=== PATIENT | female | born 1975 | race Caucasian/White ===

== ENCOUNTER 2025-04-09 10:52 | Outpatient (AMB) | payer SELFPAY ==
--- NOTE | 2025-04-09 10:54 | A.OFFVIS_ITS ---
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 Allergies codeine Allergy (Mild, Verified 04/09/25 10:55) respiratory sedation sulfa drugs Allergy (Severe, Uncoded 04/09/25 10:45) numbeness dust mites Allergy (Mild, Uncoded 04/09/25 10:23) Sneezing HPI HPI Lyme Arthritis/ Mylagia: Details: New patient visit. SHANNON 1:320 ordered by [facility] due to chronic pain. She saw [facility] for 1 visit where labs were ordered. No follow-up has been scheduled. She has history of positive SHANNON. It has had speckled pattern in the past. This new test reveals nucleolar pattern per patient. She had drug induced malar rash after ER visit. She has malar erythema at times, self-limited. +intermittent oral ulcers. Years ago she had genital ulcers. Hx shingles (R buttocks) and HSV (buttocks). Dyspnea post covid. She has clear thick mucus that causing choking episodes at times. No photosensitivity. +dry mouth with minimal dry eyes. She has flares of feeling sick. She has vasovagal episodes with intense knee pain. She has knee pain without vasovagal episodes. She has neck pain with headaches. Pain in shoulders, elbow, wrists, knees, toes. She can have pain in all joints at one time. She has associated warmth in area of joint pain. She has not had joint swelling. She had miscarriage 14 weeks and 8 week . 5 childbirth. No hx of DVT or PE. 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 She experienced a tick bite [place] the [place] with associated ankle swelling. She was treated for Lyme infection initially. Then she saw a specialist who ordered further testing that was out of pocket that confirm anaplasmosis and ehrlichiosis. She had azithromycin and hydroxychloroquine, which benefit in reducing her joint pain. She also reports that she had more clarity in her thought with less memory problems. She has had elevated IgM levels. PMx reviewed in EMR. She also has history of Idiopathic angioedema. She has a abdominal/pelvic mesh with planned surgery to remove it by a surgeon in [place]. History of asthma. She has GERD and uses Tums as needed. No family history of SLE or RA. Her maternal grandmother had arthritis. Medication list reviewed with patient. 01/21/2025 ESR 35, negative RF, CBC normal. SHANNON 1:320. [facility] Medical History (Updated 04/09/25 @ 13:51 by Jovani Miranda MD) Carpal tunnel syndrome, unspecified upper limb Hyperchylomicronemia Allergic bronchitis without complication Dermatitis Vascular headache, not intractable Constipation, unspecified Rectocele Other specified anxiety disorders Gastro-esophageal reflux disease with esophagitis, without bleeding Other immunodeficiencies Late effect of Lyme disease Irritable bowel syndrome, unspecified Family history of breast cancer Dysphagia, unspecified Dermographism Obstructive sleep apnea (adult) (pediatric) COVID-19 Post-COVID syndrome Prediabetes Thyroid nodule Surgical History (Updated 04/09/25 @ 10:41 by Abby Loaiza CMA) H/O endoscopy History of salpingectomy H/O abdominoplasty Hx of colonoscopy S/P anterior colporrhaphy Family History (Updated 04/09/25 @ 10:22 by Abby Loaiza CMA) Mother Breast cancer Maternal Grandmother Breast cancer Social History (Updated 04/09/25 @ 10:42 by Abby Loaiza CMA) Alcohol intake: current Patient Tobacco Use Status: Former Tobacco user Physical Exam Vital Signs: Last Vital Signs Pulse 87 04/09/25 10:56 Pulse Ox 98 04/09/25 10:56 Oxygen Delivery Method Room Air 04/09/25 10:56 BMI result Body Mass Index 30.5 Const Other: General: Comfortable CVS: RRR Respiratory: clear to auscultation bilaterally. Good respiratory effort Skin: Slight malar erythema MSK: Tender bilateral MCPs, PIPs and interphalangeal joints. No synovitis. Normal range of motion of upper extremities and lower extremities. No allodynia or tender points present. Assessment & Plan Assessment & Plan (1) Positive SHANNON (antinuclear antibody): Comment: With history of malar erythema, oral ulcers, dry mouth, chronic polyarthralgias and clinical exam significant for tender small joints in her hands. She does no t have synovitis to suggests active inflammatory arthritis. I will workup for connective tissue disease including SLE, Sjogren syndrome and perform workup for early inflammatory arthritis. Code(s): R76.8 - Other specified abnormal immunological findings in serum Category: Medical Plan: Labs ordered X-ray bilateral hands requested from the hand Center, which patient has had done within the last 6 months Return to clinic in 1-2 months to review results (2) Polyarthralgia: Code(s): M25.50 - Pain in unspecified joint Category: Medical Plan: See above Orders: Orders Complete Blood Count Man Dif Today R76.8 - Other specified abnormal immunological findings in serum C Reactive Protein Today R76.8 - Other specified abnormal immunological findings in serum Erythrocyte Sedimentation Rate Today R76.8 - Other specified abnormal immunological findings in serum Complement C3 Today R76.8 - Other specified abnormal immunological findings in serum Protein Creatinine Ratio, Ur Today R76.8 - Other specified abnormal immunological findings in serum Sm Sm/BIOMETRIC TECHNICIAN Antibodies Today R76.8 - Other specified abnormal immunological findings in serum UA w Microscopic Today R76.8 - Other specified abnormal immunological findings in serum Rheumatoid Factor Today M25.50 - Pain in unspecified joint Cyclic Citrullinated Peptide Today M25.50 - Pain in unspecified joint Alanine Aminotransferase Today R76.8 - Other specified abnormal immunological findings in serum Aspartate Amino Transferase Today R76.8 - Other specified abnormal immunologi jaguar findings in serum Creatinine Today R76.8 - Other specified abnormal immunological findings in serum Complement C4 Today R76.8 - Other specified abnormal immunological findings in serum Anti DNA DS Antibody Today R76.8 - Other specified abnormal immunological findings in serum Sjogren's Antibodies Today R76.8 - Other specified abnormal immunological findings in serum Coding Level of Care Code New Pt Level 4 (62977) Diagnoses Positive SHANNON (antinuclear antibody) R76.8 Polyarthralgia M25.50
[2025-04-09 10:56] VITALS: PULSE 87; O2SAT 98; BMI 30.5
--- OUTSIDE RECORDS SUMMARY | 2025-04-09 12:08 | XMS_ITS | Clinical Summary ---
Author Organization [facility] Address [address] [place] [phone] Phone Care Team Providers Care Bush Hog Operator Name Role Phone Stephanie Shah MD Primary Care Prov ider Allergies Active Allergy Reactions Criticality Noted Date Comments Codeine Other (See Comments),Unknown,Vomiting High 08/05/2017 Sulfa (Sulfonamide Antibiotics) Other (See Comments) Medium 08/05/2017 Medications albuterol (ACCUNEB) 0.63 mg/3 mL nebulizer solution Inhale by inhalation route. Active Social History Tobacco Use Types Packs/Day Years Used Date Smoking Tobacco: Former Cigarettes 0.5 5 Q uit: 05/10/2010 Smokeless Tobacco: Never Comments:Do not smoke any lo nger Alcohol Use Standard Drinks/Week Comments Never 0 (1 standard drink = 0.6 oz pur e alcohol) Interpersonal Safety Answer Date Record ed Is there anyone in your life that is hurting or threatening you in anyway? Not on file 10/16/2024 Physical Indicators of Abuse No evidence of phys ical abuse 10/16/2024 Comments Unknown Sex and Gender Information Value Date Recorded Sex Assigned at Not on file Legal Sex Female 10:23 AM EDT Gender Identity Not on file Sexual Orientation Not on file Last Filed Vital Signs Vital Sign Reading Time Taken Comments Blood Pressure - - Pulse - - Temperature - - Respiratory Rate - - Oxygen Saturation - - Inhaled Oxygen Concentration - - Weight 76.2 kg (168 lb) 10/16/2024 4:53 PM EST Height 163.8 cm (5' 4.5 ) 10/16/2024 4:53 PM EST Body Mass Index 28.39 10/16/2024 4:53 PM EST Plan of Treatment Health Maintenance Due Date Last Done Comments HIV screening 1988 Hepatitis C screening 1993 Tetanus adult (Td q 10,TDAP once) 1995 Cervical cancer screening 1996 Breast cancer screening 2015 Lipid disorder screening 2015 Colon cancer screening, Colonoscopy 2020 Diabetes screening 2020 Covid-19 vaccine series ( - 2023- season) 2024 Influenza vaccine 07/22/2025 RSV Immunization (1 - 1-dose 75+ series) 2050 Meningococcal Vaccine Aged Out No rosangela lonnie eligible based on patient's age to complete this topic Pneumococcal Vaccine (2 - 49 years) Aged Out No longer eligible based on patient's age to complete this topic Insurance [employer] [facility] [employer] Care Teams Bush Hog Operator Relationship Specialty Start Date End Date Stephanie Shah MD PCP - General Internal Medicine 07/02/24
--- OUTSIDE RECORDS SUMMARY | 2025-04-09 12:08 | XMS_ITS ---
Author Organization [employer] [facility] Address [address] [place] [address] Care Team Providers Care Comber Fixer Name Role Phone BETO MONTILLA Unavailable [phone] VANCE MCCALL Unavailable [phone] REASON FOR VISIT seca- Medications Medication SIG (Take, Route, Fr equency, Duration) Notes Start Date End Date Status Zepbound 2.5 MG/0.5ML 2.5 mg weekly Subc utaneous Weekly for 30 days Active Encounters Encounter Location Date Provider Diagnosis [place] [id number] [phone] 01/21/2025 VANCE MCCALL Other obesity due to excess calories E66.09 ; Body mass index [BMI] 31.0-31.9, adult Z68.31 ; Dietary counseling and surveillance Z71.3 ; Prediabetes R73.03 and QUYEN on CPAP G47.33 Assessments Encounter Date Diagnosis (ICD Code) Assessment Notes Treatment Notes Treatment Clinical Notes Section Notes 01/21/2025 Other obesity due to excess calories (ICD-10 - E66.09) #Weight Management 01/21/2025 History of prediabetes metabolic syndrome and QUYEN on CPAP We discussed the new surmount QUYEN trial and indication for tirzepatide Meets criteria for tirzepatide Will start Zepbound Patient has been found to be obese with a BMI of (31). Patient has obese class 1 per BMI standards Total time spent today was 30 minutes of which greater than 50% was spent on coordinating and counseling We are a board certified obesity and weight management practice Of note, some information is being carried forward from prior records for informational purposes only and is being cited so that efficiency, safety and quality of the patient's care is not compromised This note was prepared using voice recognition software and direct typing Please excuse inadvertent tennis net maker or typing errors, or uncorrected word substitutions Although every attempt has been made by the provider to proofread this document, occasional misspellings and typographical errors may still be present Due to the previous pandemic, and the use of personal protective equipment (PPE) This may decrease voice recognition accuracy Inadvertent tennis net maker errors may occur 01/21/2025 Body mass index [BMI] 31.0-31.9, adult (ICD-10 - Z68.31) #Weight Management 01/21/2025 History of prediabetes metabolic syndrome and QUYEN on CPAP We discussed the new surmount QUYEN trial and indication for tirzepatide Meets criteria for tirzepatide Will start Zepbound Patient has been found to be obese with a BMI of (31). Patient has obese class 1 per BMI standards Total time spent today was 30 minutes of which greater than 50% was spent on coordinating and counseling We are a board certified obesity and weight management practice Of note, some information is being carried forward from prior records for informational purposes only and is being cited so that efficiency, safety and quality of the patient's care is not compromised This note was prepared using voice recognition software and direct typing Please excuse inadvertent tennis net maker or typing errors, or uncorrected word substitutions Although every attempt has been made by the provider to proofread this document, occasional misspellings and typographical errors may still be present Due to the previous pandemic, and the use of personal protective equipment (PPE) This may decrease voice recognition accuracy Inadvertent tennis net maker errors may occur 01/21/2025 Dietary counseling and surveillance (ICD-10 - Z71.3) #Weight Management 01/21/2025 History of prediabetes metabolic syndrome and QUYEN on CPAP We discussed the new surmount QUYEN trial and indication for tirzepatide Meets criteria for tirzepatide Will start Zepbound Patient has been found to be obese with a BMI of (31). Patient has obese class 1 per BMI standards Total time spent today was 30 minutes of which greater than 50% was spent on coordinating and counseling We are a board certified obesity and weight management practice Of note, some information is being carried forward from prior records for informational purposes only and is being cited so that efficiency, safety and quality of the patient's care is not compromised This note was prepared using voice recognition software and direct typing Please excuse inadvertent tennis net maker or typing errors, or uncorrected word substitutions Although every attempt has been made by the provider to proofread this document, occasional misspellings and typographical errors may still be present Due to the previous pandemic, and the use of personal protective equipment (PPE) This may decrease voice recognition accuracy Inadvertent tennis net maker errors may occur 01/21/2025 Prediabetes (ICD-10 - R73.03) #Weight Management 01/21/2025 History of prediabetes metabolic syndrome and QUYEN on CPAP We discussed the new surmount QUYEN trial and indication for tirzepatide Meets criteria for tirzepatide Will start Zepbound Patient has been found to be obese with a BMI of (31). Patient has obese class 1 per BMI standards Total time spent today was 30 minutes of which greater than 50% was spent on coordinating and counseling We are a board certified obesity and weight management practice Of note, some information is being carried forward from prior records for informational purposes only and is being cited so that efficiency, safety and quality of the patient's care is not compromised This note was prepared using voice recognition software and direct typing Please excuse inadvertent tennis net maker or typing errors, or uncorrected word substitutions Although every attempt has been made by the provider to proofread this document, occasional misspellings and typographical errors may still be present Due to the previous pandemic, and the use of personal protective equipment (PPE) This may decrease voice recognition accuracy Inadvertent tennis net maker errors may occur 01/21/2025 QUYEN on CPAP (ICD-10 - G47.33) #Weight Management 01/21/2025 History of prediabetes metabolic syndrome and QUYEN on CPAP We discussed the new surmount QUYEN trial and indication for tirzepatide Meets criteria for tirzepatide Will start Zepbound Patient has been found to be obese with a BMI of (31). Patient has obese class 1 per BMI standards Total time spent today was 30 minutes of which greater than 50% was spent on coordinating and counseling We are a board certified obesity and weight management practice Of note, some information is being carried forward from prior records for informational purposes only and is being cited so that efficiency, safety and quality of the patient's care is not compromised This note was prepared using voice recognition software and direct typing Please excuse inadvertent tennis net maker or typing errors, or uncorrected word substitutions Although every attempt has been made by the provider to proofread this document, occasional misspellings and typographical errors may still be present Due to the previous pandemic, and the use of personal protective equipment (PPE) This may decrease voice recognition accuracy Inadvertent tennis net maker errors may occur Plan Of Treatment Medication Medication Name Sig Start Date Stop Date Notes Zepbound 2.5 MG/0.5ML 2.5 mg weekly Subc utaneous Weekly for 30 days Next Appt Details Provider Name:VANCE MCCALL, 04/13/2025 10:45:00 AM, [address], [place], [address], Progress Notes * Consuelo TIMMONSDOB:1974 (49 yo F)Acc No.[id number]:01/21/2025 Patient:?Consuelo TIMMONS Provider:?VANCE MCCALL NP :1975???Age:49 Y???Sex:Female D ate:01/21/2025 Address:[address] [place], [place] [id number] Subjective: * Chief Complaints: * ???1. Seca-. * HPI: ???Constitutional:? Patient is here today for a weight management f/u visit Patient seen and examined. Full past medical history, social history, family history, allergies and current medications were reviewed and updated. Body composition analysis reviewed today #Weight Management 01/21/2025 Patient no longer on Wegovy due to it costing almost thousand is a month for 2024 She does have obstructive sleep apnea We discussed the new surmount QUYEN trial and indication for tirzepatide Patient no longer on Mounjaro due to not having diagnosis of type 2 diabetes Insurance will no longer cover and PA did Her A1c today is back to being prediabetic at 5.8 Previously had done well on dual incretin and was euglycemic at 5.4 Her weight is obviously up including fat mass 01/21/2025, Weight , BMI 12/07/2024, Weight 182lbs, BMI 31 (+14lbs) 09/22/2024, Weight 168lbs , BMI 28 (-3bs) 04/02/2024, Weight 171, BMI 29.4 (-17ilbs) 11/28/2022: Weight 188lbs, BMI (-16lbs) 07/18/2023: Weight 204 lbs, BMI 35: PCP Pablo Patient works as job analysis manager, [employer] Highest weight: 212 lbs Lowest weight: 130'slbs Goal weight: 150-160 lbs QUYEN screening, +compliant with CPAP Comprehensive labs April 2024 Hemoglobin A1c euglycemic at 5.3 Renal function electrolytes and LFTs are stable CBC is stable Total cholesterol 264, LDL 159, HDL 89, triglycerides 81 Vitamin D 28 TSH 1.03 UA unremarkable Has not had an echocardiogram recently. Non-smoker. ETOH use: Social. * ROS:?All Other Systems:?Review of Systems (ROS)?All others negative except those mentioned in HPI.? * Medical History:? Objective: * Vitals:? * Examination: ???General Examination: ?GENERAL APPEARANCE:?in no acute distress, well developed, well nourished.?HEAD:?normocephalic, atraumatic.?EYES:?pupils equal, round, reactive to light and accommodation.?EARS:?normal.?ORAL CAVITY:?mucosa moist.?THROAT:?clear.?NECK/THYROID:?neck supple, full range of motion, no cervical lymphadenopathy.?SKIN:?no suspicious lesions, warm and dry.?HEART:?no murmurs, regular rate and rhythm, S1, S2 normal.?LUNGS:?clear to auscultation bilaterally.?ABDOMEN:?normal, bowel sounds present, soft, nontender, nondistended.?EXTREMITIES:?no clubbing, cyanosis, or edema.?NEUROLOGIC:?nonfocal, motor strength normal upper and lower extremities, sensory exam intact.? Assessment: * Assessment: 1.?Other obesity due to exce ss calories - E66.09???2.?Body mass index [BMI] 31.0-31.9, adult - Z68.31???3.?Dietary counseling and surveillance - Z71.3???4.?Prediabetes - R73.03???5.?QUYEN on CPAP - G47.33??? #Weight Management 01/21/2025 History of prediabetes metabolic syndrome and QUYEN on CPAP We discussed the new surmount QUYEN trial and indication for tirzepatide Meets criteria for tirzepatide Will start Zepbound Patient has been found to be obese with a BMI of (31). Patient has obese class 1 per BMI standards Total time spent today was 30 minutes of which greater than 50% was spent on coordinating and counseling We are a board certified obesity and weight management practice Of note, some information is being carried forward from prior records for informational purposes only and is being cited so that efficiency, safety and quality of the patient's care is not compromised This note was prepared using voice recognition software and direct typing Please excuse inadvertent tennis net maker or typing errors, or uncorrected word substitutions Although every attempt has been made by the provider to proofread this document, occasional misspellings and typographical errors may still be present Due to the previous pandemic, and the use of personal protective equipment (PPE) This may decrease voice recognition accuracy Inadvertent tennis net maker errors may occur. Plan: * Treatment: * Billing Information: * Visit Code:? * Procedure Codes:? * Electronic signature of PAUL MCCALL on 04/09/2025 at 12:08 PM EDT Sign off status: Pending * Provider:?VANCE MCCALL NP Date:?2024 Generated for Christiano ortiz/Tristan/Elderitting on:?04/09/2025 12:08 PM EDT History and Physical Notes * HPI (History of Present Illness) Category Sub-Category Detail Notes Category Not es Constitutional Patient is here today for a weight management f/u visit Patient seen and examined. Full past medical history, social history, family history, allergies and current medications were reviewed and updated. Body composition analysis reviewed today #Weight Management 01/21/2025 Patient no longer on Wegovy due to it costing almost thousand is a month for 2024 She does have obstructive sleep apnea We discussed the new surmount QUYEN trial and indication for tirzepatide Patient no longer on Mounjaro due to not having diagnosis of type 2 diabetes Insurance will no longer cover and PA did Her A1c today is back to being prediabetic at 5.8 Previously had done well on dual incretin and was euglycemic at 5.4 Her weight is obviously up including fat mass 01/21/2025, Weight , BMI 12/07/2024, Weight 182lbs, BMI 31 (+14lbs) 09/22/2024, Weight 168lbs , BMI 28 (-3bs) 04/02/2024, Weight 171, BMI 29.4 (-17ilbs) 11/28/2022: Weight 188lbs, BMI (-16lbs) 07/18/2023: Weight 204 lbs, BMI 35: PCP Pablo Patient works as job analysis manager, [employer] Highest weight: 212 lbs Lowest weight: 130'slbs Goal weight: 150-160 lbs QUYEN screening, +compliant with CPAP Comprehensive labs April 2024 Hemoglobin A1c euglycemic at 5.3 Renal function electrolytes and LFTs are stable CBC is stable Total cholesterol 264, LDL 159, HDL 89, triglycerides 81 Vitamin D 28 TSH 1.03 UA unremarkable Has not had an echocardiogram recently. Non-smoker. ETOH use: Social Examination Category Sub-Category Detail Notes Category Not es General Examination GENERAL APPEARANCE: in no ac kake distress, well developed, well nourished HEAD: normocephalic, atrau matic EYES: pupils equal, round, reactive to light and accommodation EARS: normal THROAT: clear NECK/THYROID: neck supple, full ra nge of motion, no cervical lymphadenopathy HEART: no murmurs, regular rate and rhythm, S1, S2 normal LUNGS: clear to auscultatio n bilaterally ABDOMEN: normal, bowel sounds present, soft, nontender, nondistended NEUROLOGIC: nonfocal, motor stre ngth normal upper and lower extremities, sensory exam intact SKIN: no suspicious lesion s, warm and dry EXTREMITIES: no clubbing, cyanosi s, or edema ORAL CAVITY: mucosa moist
--- OUTSIDE RECORDS SUMMARY | 2025-04-09 12:08 | XMS_ITS | Clinical Summary ---
Author Organization [facility] [address] [facility] Address [address] [place] [address] Phone Care Team Providers Care Injection Wax Molder Name Role Phone Stephanie Shah MD Primary Care Prov ider Allergies Active Allergy Reactions Criticality Noted Date Comments Codeine 09/28/2024 Respiratory sedation Sulfa (Sulfonamide Antibiotics) 09/28/2024 Numbness and tingling on face and lips Medications Ketty 7.5 mg/0.5 mL injection INJECT 1 PEN SUBCUTANEOUSLY EVERY WEEK 4 Active LORazepam (ATIVAN) 0.5 mg tablet Take 1 tablet (0.5 mg total) by mouth every 6 (six) hours if needed. Max Daily Amount: 2 mg 0 Active esomeprazole (NexIUM) [address] capsule Take 1 capsule (40 mg total) by mouth daily. 7 Active calcium carbonate (Tums) 500 mg (200 mg elemental calcium) chewable tablet Chew 1 tablet (500 mg total). 1 Active albuterol HFA (PROAIR HFA ; PROVENTIL HFA ; VENTOLIN HFA) 90 mcg/actuation inhaler Inhale 2 puffs by mouth. 2 Active albuterol 0.63 mg/3 mL nebulizer solution Inhale by inhalation route. Active ibuprofen (ADVIL,MOTRIN) 40 mg/ml suspension drops Take by mouth. Activ e atorvastatin (LIPITOR) 10 mg tablet Take 1 tablet (10 mg total) by mouth at bedtime. 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 Following with [facility] pulmonology. On Symbicort and has follow-up. Consult on 01/26/2022 COVID-19 virus infection 02/16/2021 Overview (12/07/2024): 02/03/2021,11/2023 Obstructive sleep apnea 06/16/2020 Overview (12/07/2024): [facility] Home Sleep Apnea Test: Date 06/10/2020; BMI 33; AHI 5; average oxygen saturation 96% (lowest 87% without saturations <88% for 5% or more of study) - Obstructive Sleep Apnea - mild; without sleep related hypoventilation by 2019 home sleep apnea test. Abnormal laboratory test result 02/08/2018 Overview (12/07/2024): ELEVATED IgM, with normal SPEP, no immune or oncologic manifestations currently Repeat in 1 year 02/08/18 Snoring 11/22/2017 Overview (12/07/2024): 11/16/2017 Home Sleep Study did not reveal sleep apnea. Gastroesophageal reflux disease with esophagitis 02/14/2017 Overview (12/07/2024): EGD 06/06/2015 at [facility]. IBS (irritable bowel syndrome) 02/14/2017 Overview (12/07/2024): Onset approx age 30, alt C/D. 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 Primary immunodeficiency disorder ([facility] V24) 02/25/2016 Rectocele 02/25/2016 Situational anxiety 02/25/2016 Reactive airway disease without complication 06/2015 Allergic rhinitis 04/18/2014 Hypercholesterolemia 12/01/2011 Carpal tunnel syndrome 11/28/2009 Encounters Date Type Department Care Team Description 03/08/2025 Telephone Gastroenterology - [address] [place] [address] Kaya German MD 03/07/2025 Telephone Adult Medicine - [place] [address] [place] [phone] Stephanie Shah MD Verbal Referral 02/27/2025 Telephone Adult Medicine - [place] [address] [place] [phone] Stephanie Shah MD Referral from Last 3 Months Immunizations Name Administration Dates Next Due Influenza Quadravalent, MDCK , 0.5ml, preservative free (Flucelvax) 6mo and older 07/24/2024,11/09/2022,10/17/2019 Influenza Quadravalent, MDCK , 0.5ml, with preservative (Flucelvax) 6mo and older 10/27/2018 Td Tetanus diptheria (Tdvax) 7yo and older 06/11 Tdap Tetanus diptheria acell ular pertussis (Boostrix; Adacel) 7yo and older 06/11/2008 Surgical History Surgery Date Site/Laterality Comments BLADDER SURGERY 04/2013 PROCEDURE: HISTORICAL BLADDER SURGERY; COMMENT: vaginal colporrhaphy COLONOSCOPY 06/06/2015 PROCEDURE: HISTORICAL COLONOSCOPY; COMMENT: Olive@[facility]; normal. UPPER GASTROINTESTINAL ENDOSCOPY 06/06/2015 PROCEDURE: OR UPPER GI ENDOSCOPY PERFORMED; COMMENT: Olive@[facility]; grade 3 reflux esophagitis. CARPAL TUNNEL RELEASE PROCEDURE: OR NEUROPLASTY &/TRANSPOS MEDIAN NRV CARPAL TUNNE; COMMENT: right hand BELT ABDOMINOPLASTY PROCEDURE: HISTORICAL TUMMY TUCK OTHER SURGICAL HISTORY Bilateral PROCEDURE: OR LAPAROSCOPY SALPINGOSTOMY; COMMENT: salpingectomy Medical History Medical History Date Comments IBS (irritable bowel syndrome) 02/14/2017 D X:IBS (irritable bowel syndrome); COMMENT: Onset approx age 30, alt C/D. Constipation 02/25/2016 DX:Constipation Eczema 02/25/2016 DX:Eczema Episodic cluster headache, n ot intractable 02/25/2016 DX:Episodic cluster headache , not intractable Gastroesophageal reflux dise ase with esophagitis 02/14/2017 DX:Gastroesophageal reflux d isease with esophagitis; COMMENT: EGD 06/06/2015 at [facility]. Post-Lyme disease syndrome 02/25/[address] DX:[address]-Lyme disease syndrome Primary immunodeficiency dis order (CMS/HCC V24) 02/25/2016 DX:Primary immunodeficiency disorder (HCC) Rectocele 02/25/2016 DX:Rectocele Situational anxiety 02/25/2016 DX:Situation al anxiety Snoring 11/22/2017 DX:Snoring; COMM ENT: 11/16/2017 Home Sleep Study did not reveal sleep apnea. FH: breast cancer in first d egree relative 04/26/2019 DX:FH: breast cancer in firs t degree relative; COMMENT: Mother (50's), maternal grandmother (30's, no treatment and ) and great grandmother; sister Abnormal laboratory test result 02/08/2018 DX:Abnormal laboratory test result; COMMENT: ELEVATED IgM, with normal SPEP, no immune or oncologic manifestations currently Repeat in 1 year 02/08/18 Allergic rhinitis 04/18/2014 DX:Allergic rh initis Asthma 04/28/2015 DX:Asthma Carpal tunnel syndrome 11/28/2009 DX:Carpal tunnel syndrome House dust mite allergy 04/11/2018 DX:House dust mite allergy Hypercholesterolemia 12/01/2011 DX:Hypercho lesterolemia Dermatographism DX:Dermatographi sm Family History Medical History Relation Name Comments Asthma Aunt Other: Joint Problems Brother Bowel Problems Breast cancer Maternal Grandmother Breast cancer Mother Barnet's Dise ase Breast cancer Mother's side Great Grandmo ther Asthma Other Children Other: GI cancer Paternal Grandmother Breast cancer Sister Bowel Problems , Asthma, Joint Problems Relation Name Status Comments Aunt Brother Father Maternal Grandmother Mother Mother's side Other Paternal Grandmother Sister Social History Tobacco Use Types Packs/Day Years Used Date Smoking Tobacco: Former Cigarettes 0.8 6.1 1 12/05/2001 - 11/21/2008 Smokeless Tobacco: Never Alcohol Use Standard Drinks/Week Comments Yes 0 (1 standard drink = 0.6 oz pur e alcohol) Comments Unknown Sex and Gender Information Value Date Recorded Sex Assigned at Female 10/01/2024 8:03 AM EST Legal Sex Female 5:59 PM EST Gender Identity Female 10/01/2024 8:03 AM EST Sexual Orientation Straight 10/01/2024 8: 03 AM EST Obstetrics History Last Filed Vital Signs Vital Sign Reading Time Taken Comments Blood Pressure 122/84 08/22/2024 3:10 PM EDT Pulse 84 08/22/2024 3:10 PM EDT Temperature - - Respiratory Rate - - Oxygen Saturation - - Inhaled Oxygen Concentration - - Weight 77.6 kg (171 lb) 09/28/2024 9:46 AM EST Height 165.1 cm (5' 5 ) 09/28/2024 9:46 AM EST Body Mass Index 28.46 09/28/2024 9:46 AM EST Plan of Treatment Upcoming Encounters Date Type Department Care Team (Late st Contact Info) Description 04/17/2025 4:00 PM EDT Office Visit Adult Medicine - [place] [address] [place] [phone] Stephanie Shah MD [address] [place] [address] Health Maintenance Due Date Last Done Comments Hepatitis A Vaccines (1 of 2 - Risk 2-dose series) 1994 Hepatitis B Vaccines (1 of 3 - 19+ 3-dose series) 1994 Pneumococcal Vaccine: Pediatrics (0 to 5 Years) and At-Risk Patients (6 to 64 Years) (1 of 2 - PCV) 1994 Cervical Cancer Screening: Pap Smear 1996 DTaP,Tdap,and Td Vaccines (3 - Td or Tdap) 06/11/2018 06/11/2008, 06/11/2008 Breast Cancer Screening 03/16/2021 03/16/2019, 02/08 COVID-19 Vaccine (2 - Minh risk series) 04/24/2022 03/27/2022 Colorectal Cancer Screening: Colonoscopy 10/23/2022 Depression Screening 10/23/2022 HIV Screening 10/23/2022 Social Influencers of Health Screening 10/23/2022 Cholesterol Screening (Lipid Panel) 06/13/2028 06/13/2023 MMR Vaccines Aged Out 08/23/2016 No longer eligi ble based on patient's age to complete this topic Hepatitis C Screening Completed 08/05/2017 Influenza Vaccine Completed 07/24/2024, , 11/09/2022, Additional history exists HIB Vaccines Aged Out No longer eligi ble based on patient's age to complete this topic HPV Vaccines Aged Out No longer eligi ble based on patient's age to complete this topic IPV Vaccines Aged Out No longer eligi ble based on patient's age to complete this topic Meningococcal ACWY Vaccine Aged Out N o longer eligible based on patient's age to complete this topic Meningococcal B Vaccine Aged Out No l onger eligible based on patient's age to complete this topic RSV Immunization Patients Under 20 months Aged Out No longer eligible based on patient's age to complete this topic Varicella Vaccines Aged Out No longer eligible based on patient's age to complete this topic Procedures Procedure Name Priority Date/Time Associated Diagnosis Comments RHEUMATOID FACTOR Routine 01/21/2025 4:0 4 PM EST Nontoxic multinodular goiter Cervical osteoarthritis SHANNON IFA WITH TITER AND PATTERN Routine 01/21/2025 4:04 PM EST Nontoxic multinodular goiter Cervical osteoarthritis C REACTIVE PROTEIN, HIGH SENSITIVITY Routine 01/21/2025 4:04 PM EST Nontoxic multinodular goiter Cervical osteoarthritis SEDIMENTATION RATE Routine 01/21/2025 4: 04 PM EST Nontoxic multinodular goiter Cervical osteoarthritis COMPLETE BLOOD COUNT Routine 01/21/2025 4:04 PM EST Nontoxic multinodular goiter Cervical osteoarthritis THYROID STIMULATING HORMONE WITH REFLEX TO FREE T4 AND FREE T3 Routine 01/21/2025 4:04 PM EST Nontoxic multinodular goiter LIPID PANEL Routine 06/13/2023 ROSLYN SCREENING DIGITAL Routine 03/16/2019 5:10 PM EDT Encounter for screening mammogram for malignant neoplasm of breast from Last 3 Months or Most Recently Relevant to Health Maintenance Results * Thyroid stimulating hormone with reflex to free t4 and free t3 (01/21/2025 4:04 PM EST) TSH 1.94 0.40 - 4.00 mcIU/mL LAB CHEMISTRY METHOD 01/21/2025 5:17 PM EST [facility] Blood Venous blood specimen / Unknown Venipuncture / Unknown 01/21/2025 4:04 PM EST 01/21/2025 4:13 PM EST Jaclyn Thomas MD LAB BLOOD ORDERABLES Final Result Performing Organization Address City/[facility]/ZIP Co de Phone Number [facility] [address] [place] [address], [place] [phone] * (ABNORMAL) SHANNON IFA with titer and pattern (01/21/2025 4:04 PM EST) SHANNON Positive( A) Negative 01/23/2025 12:24 PM [facility] SHANNON Pattern Nucleolar (A) (none) 01/23/2025 12:24 PM EST [facility] Comment:May be associated wi th scleroderma. Titer 1:320(A) <1:160 01/23/2025 12:24 PM EST [facility] Comment: Approximately 3% of healthy persons have SHANNON titer of 1:320 or higher Further testing for other autoantibodies should be prompted by specific clinical findings/impressions. Blood Venous blood specimen / Unknown Venipuncture / Unknown 01/21/2025 4:04 PM EST 01/21/2025 4:13 PM EST us Jessica Bryant DO LAB BLOOD ORDERABLES Final Resu lt [facility] [address] [place] [address], [place] [phone] * (ABNORMAL) Sedimentation rate (01/21/2025 4:04 PM EST) Sed Rate 35(H) 0 - 20 mm/hr LAB HEMETOLOGY METHOD 01/21/2025 5:16 PM [facility] Blood Venous blood specimen / Unknown Venipuncture / Unknown 01/21/2025 4:04 PM EST 01/21/2025 4:13 PM EST us Jessica Bryant DO LAB BLOOD ORDERABLES Final Resu lt [facility] [address] [place] [address], [place] [phone] * Complete blood count (01/21/2025 4:04 PM EST) WBC 7.0 4.8 - 10.8 K/mcL LAB HEMETOLOGY METHOD 01/21/2025 4:29 PM [facility] RBC 4.30 3.80 - 4.80 M/mcL LAB HEMETOLOGY METHOD 01/21/2025 4:29 PM [facility] Hemoglobin 12.4 11.5 - 16.0 g/dL LAB HEMETOLOGY METHOD 01/21/2025 4:29 PM [facility] Hematocrit 37.3 35.0 - 47.0 % LAB HEMETOLOGY METHOD 01/21/2025 4:29 PM [facility] MCV 86.5 79.0 - 98.0 FL LAB HEMETOLOGY METHOD 01/21/2025 4:29 PM [facility] MCH 28.8 27.0 - 32.0 pcg LAB HEMETOLOGY METHOD 01/21/2025 4:29 PM [facility] MCHC 33.2 32.0 - 37.0 g/dL LAB HEMETOLOGY METHOD 01/21/2025 4:29 PM [facility] RDW 13.1 11.0 - 15.0 % LAB HEMETOLOGY METHOD 01/21/2025 4:29 PM [facility] Platelets 268 130 - 400 K/mcL LAB HEMETOLOGY METHOD 01/21/2025 4:29 PM EST [facility] MPV 9.1 7.0 - 11.0 FL LAB HEMETOLOGY METHOD 01/21/2025 4:29 PM EST [facility] NRBC 0.0 <1.0 % LAB HEMETOLOGY METHOD 01/21/2025 4:29 PM EST [facility] NRBC Absolute 0.00 <0.10 K/mcL LAB HEMETOLOGY METHOD 01/21/2025 4:29 PM EST [facility] Blood Venous blood specimen / Unknown Venipuncture / Unknown 01/21/2025 4:04 PM EST 01/21/2025 4:13 PM EST us Jessica Bryant DO LAB BLOOD ORDERABLES Final Resu lt Performing Organization Address City/[facility]/ZIP Co de Phone Number [facility] [address] [place] [address], [place] [phone] * Rheumatoid factor (01/21/2025 4:04 PM EST) Rheumatoid Factor <10.0 <15.0 I Unit/mL LAB CHEMISTRY METHOD 01/21/2025 5:02 PM EST [facility] Blood Venous blood specimen / Unknown Venipuncture / Unknown 01/21/2025 4:04 PM EST 01/21/2025 4:13 PM EST us Jessica Bryant DO LAB BLOOD ORDERABLES Final Resu lt Performing Organization Address City/[facility]/ZIP Co de Phone Number [facility] [address] [place] [address], [place] [phone] * C reactive protein, high sensitivity (01/21/2025 4:04 PM EST) CRP, High Sensitivity 17.30 mg/L LAB CHEMISTRY METHOD 01/21/2025 5:06 PM EST [facility] [place] ([facility]) [facility] Comment: Cardio CRP Relative Risk Categories ?? Low ? <1.0 mg/L ?? Average ?? 1.0 - 3.0 mg/L ?? High ?>3.0 mg/L Levels >10.0 mg/L should be ignored and repeated when the patient is stable and infection or inflammation is ruled out. HRT (estrogens) consistently increase cardio CRP levels. Risk estimates for women on HRT may need to be calibrated downward. Blood Venous blood specimen / Unknown Venipuncture / Unknown 01/21/2025 4:04 PM EST 01/21/2025 4:13 PM EST Jessica Bryant DO LAB BLOOD ORDERABLES Final Resu lt [facility] ([facility]) [facility] [address] [place] [address], * (ABNORMAL) Lipid panel (06/13/2023) LDL/HDL Ratio 3 0 - 4 Triglycerides 128 0 - 150 mg/dL Cholesterol 204(A) 0 - 200 mg/dL HDL 81 >=40 mg/dL LDL Cholesterol 98 0 - 100 mg/dL Blood Venous blood specimen / Unknown Historical Provider LAB BLOOD ORDERABLES Nely l Result * ROSLYN SCREENING DIGITAL (03/16/2019 5:10 PM EDT) Anatomical Region Laterality Modality Mammography 03/16/2019 1:19 PM EDT Narrative 03/16/2019 5:[address] [facility] Diagnostic Imaging Department [address], [place] [id number] Patient: ??CATRACHO TIMMONS ?/Age/Sex: 1975 - 43 - F Unit#: ??[id number] ? Location/Status: ??SPDIMAM/REG CLI ? Mnemonic/Ordering Site: ??DIGSC/SPMAM Ordering Physician: ??STEPHANIE BUTCHER [place] Screening Digital - 03/16/19 - 1414 INDICATION: Screening.Mother had breast carcinoma in her 30s. Maternal grandmother and maternal great grandmother had breast carcinoma. COMPARISON: Prior mammograms dating back to 2009 TECHNIQUE: Routine views of both breasts were obtained using full-field direct digital mammography. Bilateral tomosynthesis was performed in MLO projection. Computer Aided Detection was utilized. BREAST PARENCHYMAL COMPOSITION: The breast parenchyma is composed of scattered fibroglandular densities. (Category b density ) . FINDINGS: ??No suspicious mammographic abnormality in the right breast. Focal asymmetry in the anterior to mid third of the left breast. Recommend further evaluation with spot compression views and ultrasound as necessary. IMPRESSION: Focal asymmetry in the anterior to mid third of the left breast. Recommend further evaluation as described above OVERALL FINAL ASSESSMENT: BI-RADS 0: ??Incomplete. ??Need Additional Imaging Evaluation. PQRI CPT II 3340F A negative mammogram in the presence of clinically suspicious palpable abnormality does not preclude the possibility of malignancy or alter the indications for biopsy. Note: Patient information entered into a reminder system with a target due date for the next mammogram: ??CPT II 7025F [id number] Dictating Physician: ??LILIANE WINCHESTER MD Electronically Signed by: ??LILIANE WINCHESTER MD Dic Date/Time: ??03/16/191706 Sign date/Time: ??03/16/19 171 Procedure Note Liliane Winchester MD - 11/09/[address] [facility] Diagnostic Imaging Department [address] [place] [address] Patient: IAINCATRACHO /Age/Sex: 1975 - 43 - F Unit#: [id number] Location/Status: [facility] CLI Mnemonic/Ordering Site: [facility] Ordering Physician: STEPHANIE BUTCHER [place] Screening Digital - 03/16/19 - 1414 INDICATION: Screening.Mother had breast carcinoma in her 30s. Maternal grandmother and maternal great grandmother had breast carcinoma. COMPARISON: Prior mammograms dating back to 2009 TECHNIQUE: Routine views of both breasts were obtained using full-fielddirect digital mammography. Bilateral tomosynthesis was performed in MLOprojection. Computer Aided Detection was utilized. BREAST PARENCHYMAL COMPOSITION: The breast parenchyma is composed ofscattered fibroglandular densities. (Category b density ) . FINDINGS: No suspicious mammographic abnormality in the right breast.Focal asymmetry in the anterior to mid third of the left breast. Recommendfurther evaluation with spot compression views and ultrasound as necessary. IMPRESSION: Focal asymmetry in the anterior to mid third of the left breast.Recommend further evaluation as described above OVERALL FINAL ASSESSMENT: BI-RADS 0: Incomplete. Need Additional Imaging Evaluation. PQRI CPT II 3340F A negative mammogram in the presence of clinically suspicious palpable abnormality does not preclude the possibility of malignancy or alter the indications for biopsy. Note: Patient information entered into a reminder system with a target duedate for the next mammogram: CPT II 7025F [id number] Dictating Physician: LILIANE WINCHESTER MD Electronically Signed by: LILIANE WINCHESTER MD Dic Date/Time: 03/16/191706 Sign date/Time: 03/16/191709 Stephanie Shah MD IMG BI PROCEDURES Final Result from Last 3 Months or Most Recently Relevant to Health Maintenance Insurance [facility] Care Teams Injection Wax Molder Relationship Specialty Start Date End Date Stephanie Shah MD [address] [place] [id number] PCP - General Internal Medicine 01/08/16
--- OUTSIDE RECORDS SUMMARY | 2025-04-09 12:08 | XMS_ITS | Encounter Summary ---
Author Organization [facility] Address [address] [place] [phone] Care Team Providers Care Robotics Software Engineer Name Role Phone Stephanie Shah MD Primary Care Prov ider Encounter Details Date Type Department Care Team (Late st Contact Info) Description 05/26/2016 Scanned Document INTERFACE DEFAULT [address] [place] [address] System, Provider Not In Social History Tobacco Use Types Packs/Day Years Used Date Smoking Tobacco: Never Assessed Comments Unknown Sex and Gender Information Value Date Recorded Sex Assigned at Not on file Legal Sex Female 10:23 AM EDT Gender Identity Not on file Sexual Orientation Not on file documented as of this encounter Plan of Treatment Not on file documented as of this encounter Visit Diagnoses Not on filedocumented in this encounter Care Teams Robotics Software Engineer Relationship Specialty Start Date End Date Stephanie Shah MD PCP - General Internal Medicine 07/02/24 documented as of this encounter
--- OUTSIDE RECORDS SUMMARY | 2025-04-09 12:08 | XMS_ITS | Patient Health Record ---
Author Organization [employer] [facility] Address [address] [place] [address] Care Team Providers Care Cco & President Name Role Phone BETO MONTILLA Unavailable [phone] VANCE MCCALL Unavailable [phone] RAJ ANG Unavailable [phone] Allergies Allergen (clinical drug ingredient) Drug/Non Drug Allergy documented on EMR Reaction Allergy Type Onset Date Status codeine Codeine resp sedation Drug Allergy Act trisha Substance with sulfonamide structure and antibacterial mechanism of action (substance) Sulfa Antibiotics Numbness, tinging Drug Allergy Active Results Component Value Reference Range Notes UA WITH CULTURE IF INDICATED Reviewed date:05/03/2024 04:52:35 PM Interpretation: Performing Lab: Notes/Report: Original Ordering Provider: VANCE MCCALL NP [employer], a member of [address] [address] [employer] - Reena Cowan MD GLUCOSE, (UA) NEGATIVE NEGATIVE mg/dL BILIRUBIN, URINE NEGATIVE NEGATIVE KETONE, URINE NEGATIVE NEGATIVE mg/dL SPECIFIC GRAVITY, URINE 1.009 1.003-1.030 BLOOD, URINE NEGATIVE NEGATIVE PH, URINE 6.0 5.0-8.0 PROTEIN, URINE NEGATIVE <= TRACE mg/dl UROBILINOGEN, URINE 0.2 0.2-1.0 E.U./dL NITRITE, URINE NEGATIVE NEGATIVE LEUKOCYTE ESTERASE, URINE NEGATIVE NEGATIVE TSH CASCADE Reviewed date:05/03/2024 04:52:35 PM Interpretation: Performing Lab: Notes/Report: [employer], a member of [address] [address] [employer] - Reena Cowan MD TSH CASCADE 1.03 0.40-4.00 uIU/ml VITAMIN D, 25-HYDROXY Reviewed date:05/03/2024 04:52:35 PM Interpretation: Performing Lab: Notes/Report: VITAMIN D, 25-HYDROXY 28 30-80 ng/mL LIPID PROFILE Reviewed date:05/03/2024 04:52:35 PM Interpretation: Performing Lab: Notes/Report: CHOLESTEROL 264 0-200 mg/dL TRIGLYCERIDES 81 0-150 mg/dL HDL CHOLESTEROL 89 >40 mg/dL LDL CALCULATED 159 0-100 mg/dL TC-HDLC RATIO 3.0 0-4.4 mg/dL CBC WITH AUTO DIFF Reviewed date:05/03/2024 04:37:30 PM Interpretation: Performing Lab: Notes/Report: Original Ordering Provider: VANCE MCCALL [employer] [address] [employer] - Reena Cowan MD WBC 6.9 4.8-10.8 x10-3/uL RBC 4.6 3.8-4.8 x10-6/uL HEMOGLOBIN 12.8 11.5-16.0 g/dL HEMATOCRIT 40.3 35-47 % MCV 88.0 79-98 fL MCH 27.9 27-32 pg MCHC 31.8 32-37 g/dL RDW 13.3 11-15 % PLT COUNT 326 130-400 x10-3/uL MEAN PLATELET VOLUME 9.6 7-11 fL NRBC % AUTO 0.0 <1 % NEUT % 44.0 LYMPH % 47.8 MONO % 6.1 EOS % 1.7 BASO % 0.3 IMMATURE GRANULOCYTES % 0.1 NRBC # AUTO 0.00 <0.1 x10-3/uL ABSOLUTE NEUT 3.03 1.5-7.0 x10-3/uL LYMPH # 3.29 1-5.0 x10-3/uL MONO # 0.42 0.2-1.0 x10-3/uL EOS # 0.12 0-0.5 x10-3/uL BASO # 0.02 0-0.2 x10-3/uL IMMATURE GRANULOCYTES # 0.01 0-0.03 x10-3/uL COMPREHENSIVE METABOLIC PANE L Reviewed date:05/03/2024 04:52:35 PM Interpretation: Performing Lab: Notes/Report: Note Original Orderi ng Provider: VANCE MCCALL NP GLUCOSE 87 70-100 mg/dL Reference range applicable to fasting specimens only BUN 15 5-25 mg/dL CREAT 0.83 0.5-1.1 mg/dL GLOMERULAR FILTRATION RATE 87 >60 This eGFR result was calculated using the CKD-EPI 2020 Creatinine Equation SODIUM 140 135-145 mEq/L POTASSIUM 3.9 3.5-5.5 mmol/L CHLORIDE 106 96-110 mmol/L CO2 29 21-32 mmol/L ANION GAP 5 3-11 CALCIUM 10.5 8.5-10.5 mg/dL TOTAL PROTEIN 7.4 6.0-8.0 G/dL ALBUMIN 4.2 3.2-5.0 G/dL BILI,TOTAL 0.3 0.0-1.4 mg/dL SGOT 17 10-42 U/L SGPT 22 10-60 U/L ALK PHOS 72 42-121 U/L GLYCOHEMOGLOBIN PROFILE Reviewed date:05/04/2024 07:41:29 AM Interpretation: Performing Lab: Notes/Report: Original Ordering Provider: VANCE MCCALL NP [employer], a member of [address] [address] [employer] - Reena Cowan MD GLYCATED HEMOGLOBIN A1C 5.3 <6.5 % ESTIMATED AVERAGE GLUCOSE 105 Reason For Referral No Information Medications Medication SIG (Take, Route, Frequency, Duration) Notes Start Date End Date Status Albuterol Sulfate HFA 108 (90 Base) MCG/ACT Inhalation for 16 Days Active Atorvastatin Calcium 10 MG TAKE ONE TABL ET BY MOUTH EVERY DAY AT BEDTIME Oral for 30 Days Active Zepbound 2.5 MG/0.5ML 2.5 mg weekly Subc utaneous Weekly for 30 days Active Zepbound 5 MG/0.5ML 5mg weekly Subcutane ous weekly for 30 days 01/21/2025 Active Zepbound 10 MG/0.5ML 10mg Subcutaneous w eekly for 28 days 03/02/2025 Active Social History Tobacco Use: Social History Observation Description Date Details (start date - stop date) Never Smoker NA - NA Tobacco Use/Smoking Question Answer Notes Are you a nonsmoker Problems Problem Type SNOMED Code ICD Code Onset Dates Problem Status W/U Status Risk Notes Problem 139151282 Other obesity due to excess calories (E66.09) Active confirmed Problem Vitamin D deficiency (10556218) Vitamin D deficiency (E55.9) Active confirmed Problem 424436711 Body mass index [BMI] 31.0-31.9, adult (Z68.31) Active confirmed Problem 955098360 Body mass index [BMI] 35.0-35.9, adult (Z68.35) Active confirmed Problem Overweight (666047244) Overweight (BMI 25.0-29.9) (E66.3) Active confirmed Problem 62516836 QUYEN on CPAP (G47.33) Active confirmed Vital Signs Heart Rate 96 /min 03/02/2025 Oximetry 96 % 03/02/2025 Blood pressure diastolic 86 mm Hg 03/02/2025 Height 64 in 03/02/2025 Blood pressure systolic 138 mm Hg 03/02/2025 Weight 184 lbs 03/02/2025 BMI 31.58 kg/m2 03/02/2025 Encounters Encounter Location Date Provider Diagnosis [facility] [address] [place] [address] 09/22/2024 VANCE MCCALL Overweight (BMI 25.0-29.9) E66.3 ; BMI 28.0-28.9,adult Z68.28 ; Dietary counseling and surveillance Z71.3 and Prediabetes R73.03 [place] [address] [address] 12/07/2024 VANCE MCCALL Other obesity due to excess calories E66.09 ; Body mass index [BMI] 31.0-31.9, adult Z68.31 ; Dietary counseling and surveillance Z71.3 ; Prediabetes R73.03 and QUYEN on CPAP G47.33 [place] [address] [address] 01/21/2025 VANCE EAGLET Other obesity due to excess calories E66.09 ; Body mass index [BMI] 31.0-31.9, adult Z68.31 ; Dietary counseling and surveillance Z71.3 ; Prediabetes R73.03 and QUYEN on CPAP G47.33 [facility] [address] [place] [address] 03/02/2025 VANCE MCCALL Other obesity due to excess calories E66.09 ; Body mass index [BMI] 31.0-31.9, adult Z68.31 ; Dietary counseling and surveillance Z71.3 ; QUYEN on CPAP G47.33 ; Prediabetes R73.03 and Vitamin D deficiency E55.[address] [place] [address] 09/10/2024 VANCE MCCALL [address] [place] [address] 09/19/[address] [place] [address] 12/04/[address] [facility] [address] [place] [address] 12/04/20[address]A [facility] [address] [place] [address] 12/06/2024 VANCE MCCALL [address] [facility] [place] [address] 12/07/2024 BETO MONTILLA [address] [facility] [place] [address] 02/19/2025 VANCE MCCALL Assessments Encounter Date Diagnosis (ICD Code) Assessment Notes Treatment Notes Treatment Clinical Notes Section Notes 09/22/2024 Overweight (BMI 25.0-29.9) (ICD-10 - E66.3) #Weight Management 09/22/2024 [facility] Indicating euglycemia at 5.4 Patient has been found to be obese with a BMI of (28). Patient has overweight class per BMI standards Total time spent today was 30 minutes of which greater than 50% was spent on coordinating and counseling We are a board certified obesity and weight management practice Patient has trialed behavioral modification, dietary restrictions and exercise for a minimum of 6 months The most recent [place] [employer] clinical endocrinologists and [place] [employer] guidelines recommend patients who have overweight BMI or obesity BMI, who also have metabolic syndrome, prediabetes, or at risk of developing type 2 diabetes should aim for a weight loss goal of at least 10% of the baseline body weight Patient counseled regarding effects of GLP/GIP-1 agonists, and other FDA approved wgt loss meds with regards to a multifactorial approach of weight loss as mentioned above and not solely appetite suppression. Of note, some information is being carried forward from prior records for informational purposes only and is being cited so that efficiency, safety and quality of the patient's care is not compromised This note was prepared using voice recognition software and direct typing Please excuse inadvertent manufacturing plant controller or typing errors, or uncorrected word substitutions Although every attempt has been made by the provider to proofread this document, occasional misspellings and typographical errors may still be present Due to the previous pandemic, and the use of personal protective equipment (PPE) This may decrease voice recognition accuracy Inadvertent manufacturing plant controller errors may occur 12/07/2024 Other obesity due to excess calories (ICD-10 - E66.09) #Weight Management 12/07/2024 History of prediabetes metabolic syndrome and QUYEN [...] board certified obesity and weight management practice Patient has trialed behavioral modification, dietary restrictions and exercise for a minimum of 6 months The most recent [place] [employer]ocrinologists and [place] [employer] guidelines recommend patients who have overweight BMI or obesity BMI, who also have metabolic syndrome, prediabetes, or at risk of developing type 2 diabetes should aim for a weight loss goal of at least 10% of the baseline body weight Patient counseled regarding effects of GLP/GIP-1 agonists, and other FDA approved wgt loss meds with regards to a multifactorial approach of weight loss as mentioned above and not solely appetite suppression. Of note, some information is being carried forward from prior records for informational purposes only and is being cited so that efficiency, safety and quality of the patient's care is not compromised This note was prepared using voice recognition software and direct typing Please excuse inadvertent manufacturing plant controller or typing errors, or uncorrected word substitutions Although every attempt has been made by the provider to proofread this document, occasional misspellings and typographical errors may still be present Due to the previous pandemic, and the use of personal protective equipment (PPE) This may decrease voice recognition accuracy Inadvertent manufacturing plant controller errors may occur 01/21/2025 Other obesity due to excess calories (ICD-10 - E66.09) #Weight Management 01/21/2025 History of prediabetes metabolic syndrome and QUYEN on CPAP Zepbound 5 mg. Getting labs from other specialties. Patient has been found to be obese [...] software and direct typing Please excuse inadvertent manufacturing plant controller or typing errors, or uncorrected word substitutions Although every attempt has been made by the provider to proofread this document, occasional misspellings and typographical errors may still be present Due to the previous pandemic, and the use of personal protective equipment (PPE) This may decrease voice recognition accuracy Inadvertent manufacturing plant controller errors may occur 03/02/2025 Other obesity due to excess calories (ICD-10 - E66.09) #Weight Management 03/02/2025 History of prediabetes metabolic syndrome and QUYEN on CPAP Lets update labs Sent prescription to [facility] Patient has been found to be obese [...] software and direct typing Please excuse inadvertent manufacturing plant controller or typing errors, or uncorrected word substitutions Although every attempt has been made by the provider to proofread this document, occasional misspellings and typographical errors may still be present Due to the previous pandemic, and the use of personal protective equipment (PPE) This may decrease voice recognition accuracy Inadvertent manufacturing plant controller errors may occur 12/07/2024 Body mass index [BMI] 31.0-31.9, adult (ICD-10 - Z68.31) #Weight Management 12/07/2024 History of prediabetes metabolic syndrome and QUYEN [...] board certified obesity and weight management practice Patient has trialed behavioral modification, dietary restrictions and exercise for a minimum of 6 months The most recent [place] [employer] of clinical endocrinologists and [place] [employer] guidelines recommend patients who have overweight BMI or obesity BMI, who also have metabolic syndrome, prediabetes, or at risk of developing type 2 diabetes should aim for a weight loss goal of at least 10% of the baseline body weight Patient counseled regarding effects of GLP/GIP-1 agonists, and other FDA approved wgt loss meds with regards to a multifactorial approach of weight loss as mentioned above and not solely appetite suppression. Of note, some information is being carried forward from prior records for informational purposes only and is being cited so that efficiency, safety and quality of the patient's care is not compromised This note was prepared using voice recognition software and direct typing Please excuse inadvertent manufacturing plant controller or typing errors, or uncorrected word substitutions Although every attempt has been made by the provider to proofread this document, occasional misspellings and typographical errors may still be present Due to the previous pandemic, and the use of personal protective equipment (PPE) This may decrease voice recognition accuracy Inadvertent manufacturing plant controller errors may occur 09/22/2024 BMI 28.0-28.9,adult (ICD-10 - Z68.28) #Weight Management 09/22/2024 Transition to [facility] A1c Indicating euglycemia at 5.4 Patient has been found to be obese with a BMI of (28). Patient has overweight class per BMI standards Total time spent today was 30 minutes of which greater than 50% was spent on coordinating and counseling We are a board certified obesity and weight management practice Patient has trialed behavioral modification, dietary restrictions and exercise for a minimum of 6 months The most recent [place] [employer] of clinical endocrinologists and [place] [employer] guidelines recommend patients who have overweight BMI or obesity BMI, who also have metabolic syndrome, prediabetes, or at risk of developing type 2 diabetes should aim for a weight loss goal of at least 10% of the baseline body weight Patient counseled regarding effects of GLP/GIP-1 agonists, and other FDA approved wgt loss meds with regards to a multifactorial approach of weight loss as mentioned above and not solely appetite suppression. Of note, some information is being carried forward from prior records for informational purposes only and is being cited so that efficiency, safety and quality of the patient's care is not compromised This note was prepared using voice recognition software and direct typing Please excuse inadvertent manufacturing plant controller or typing errors, or uncorrected word substitutions Although every attempt has been made by the provider to proofread this document, occasional misspellings and typographical errors may still be present Due to the previous pandemic, and the use of personal protective equipment (PPE) This may decrease voice recognition accuracy Inadvertent manufacturing plant controller errors may occur 01/21/2025 Body mass index [BMI] 31.0-31.9, adult (ICD-10 - Z68.31) #Weight Management 01/21/2025 History of prediabetes metabolic syndrome and QUYEN on CPAP Zepbound 5 mg. Getting labs from other specialties. Patient has been found to be obese [...] software and direct typing Please excuse inadvertent manufacturing plant controller or typing errors, or uncorrected word substitutions Although every attempt has been made by the provider to proofread this document, occasional misspellings and typographical errors may still be present Due to the previous pandemic, and the use of personal protective equipment (PPE) This may decrease voice recognition accuracy Inadvertent manufacturing plant controller errors may occur 03/02/2025 Body mass index [BMI] 31.0-31.9, adult (ICD-10 - Z68.31) #Weight Management 03/02/2025 History of prediabetes metabolic syndrome and QUYEN on CPAP Lets update labs Sent prescription to [facility] Patient has been found to be obese [...] software and direct typing Please excuse inadvertent manufacturing plant controller or typing errors, or uncorrected word substitutions Although every attempt has been made by the provider to proofread this document, occasional misspellings and typographical errors may still be present Due to the previous pandemic, and the use of personal protective equipment (PPE) This may decrease voice recognition accuracy Inadvertent manufacturing plant controller errors may occur 09/22/2024 Dietary counseling and surveillance (ICD-10 - Z71.3) #Weight Management 09/22/2024 [facility] Indicating euglycemia at 5.4 Patient has been found to be obese with a BMI of (28). Patient has overweight class per BMI standards Total time spent today was 30 minutes of which greater than 50% was spent on coordinating and counseling We are a board certified obesity and weight management practice Patient has trialed behavioral modification, dietary restrictions and exercise for a minimum of 6 months The most recent [place] [employer] of clinical endocrinologists and [place] [employer] guidelines recommend patients who have overweight BMI or obesity BMI, who also have metabolic syndrome, prediabetes, or at risk of developing type 2 diabetes should aim for a weight loss goal of at least 10% of the baseline body weight Patient counseled regarding effects of GLP/GIP-1 agonists, and other FDA approved wgt loss meds with regards to a multifactorial approach of weight loss as mentioned above and not solely appetite suppression. Of note, some information is being carried forward from prior records for informational purposes only and is being cited so that efficiency, safety and quality of the patient's care is not compromised This note was prepared using voice recognition software and direct typing Please excuse inadvertent manufacturing plant controller or typing errors, or uncorrected word substitutions Although every attempt has been made by the provider to proofread this document, occasional misspellings and typographical errors may still be present Due to the previous pandemic, and the use of personal protective equipment (PPE) This may decrease voice recognition accuracy Inadvertent manufacturing plant controller errors may occur 12/07/2024 Dietary counseling and surveillance (ICD-10 - Z71.3) #Weight Management 12/07/2024 History of prediabetes metabolic syndrome and QUYEN [...] board certified obesity and weight management practice Patient has trialed behavioral modification, dietary restrictions and exercise for a minimum of 6 months The most recent [place] [employer] of clinical [employer]ocrinologists and [place] [employer] guidelines recommend patients who have overweight BMI or obesity BMI, who also have metabolic syndrome, prediabetes, or at risk of developing type 2 diabetes should aim for a weight loss goal of at least 10% of the baseline body weight Patient counseled regarding effects of GLP/GIP-1 agonists, and other FDA approved wgt loss meds with regards to a multifactorial approach of weight loss as mentioned above and not solely appetite suppression. Of note, some information is being carried forward from prior records for informational purposes only and is being cited so that efficiency, safety and quality of the patient's care is not compromised This note was prepared using voice recognition software and direct typing Please excuse inadvertent manufacturing plant controller or typing errors, or uncorrected word substitutions Although every attempt has been made by the provider to proofread this document, occasional misspellings and typographical errors may still be present Due to the previous pandemic, and the use of personal protective equipment (PPE) This may decrease voice recognition accuracy Inadvertent manufacturing plant controller errors may occur 01/21/2025 Dietary counseling and surveillance (ICD-10 - Z71.3) #Weight Management 01/21/2025 History of prediabetes metabolic syndrome and QUYEN on CPAP Zepbound 5 mg. Getting labs from other specialties. Patient has been found to be obese [...] software and direct typing Please excuse inadvertent manufacturing plant controller or typing errors, or uncorrected word substitutions Although every attempt has been made by the provider to proofread this document, occasional misspellings and typographical errors may still be present Due to the previous pandemic, and the use of personal protective equipment (PPE) This may decrease voice recognition accuracy Inadvertent manufacturing plant controller errors may occur 03/02/2025 Dietary counseling and surveillance (ICD-10 - Z71.3) #Weight Management 03/02/2025 History of prediabetes metabolic syndrome and QUYEN on CPAP Lets update labs Sent prescription to [facility] Patient has been found to be obese [...] software and direct typing Please excuse inadvertent manufacturing plant controller or typing errors, or uncorrected word substitutions Although every attempt has been made by the provider to proofread this document, occasional misspellings and typographical errors may still be present Due to the previous pandemic, and the use of personal protective equipment (PPE) This may decrease voice recognition accuracy Inadvertent manufacturing plant controller errors may occur 01/21/2025 Prediabetes (ICD-10 - R73.03) #Weight Management 01/21/2025 History of prediabetes metabolic syndrome and QUYEN on CPAP Zepbound 5 mg. Getting labs from other specialties. Patient has been found to be obese [...] software and direct typing Please excuse inadvertent manufacturing plant controller or typing errors, or uncorrected word substitutions Although every attempt has been made by the provider to proofread this document, occasional misspellings and typographical errors may still be present Due to the previous pandemic, and the use of personal protective equipment (PPE) This may decrease voice recognition accuracy Inadvertent manufacturing plant controller errors may occur 12/07/2024 Prediabetes (ICD-10 - R73.03) #Weight Management 12/07/2024 History of prediabetes metabolic syndrome and QUYEN [...] board certified obesity and weight management practice Patient has trialed behavioral modification, dietary restrictions and exercise for a minimum of 6 months The most recent [place] [employer] of [employer] endocrinologists and [place] [employer] guidelines recommend patients who have overweight BMI or obesity BMI, who also have metabolic syndrome, prediabetes, or at risk of developing type 2 diabetes should aim for a weight loss goal of at least 10% of the baseline body weight Patient counseled regarding effects of GLP/GIP-1 agonists, and other FDA approved wgt loss meds with regards to a multifactorial approach of weight loss as mentioned above and not solely appetite suppression. Of note, some information is being carried forward from prior records for informational purposes only and is being cited so that efficiency, safety and quality of the patient's care is not compromised This note was prepared using voice recognition software and direct typing Please excuse inadvertent manufacturing plant controller or typing errors, or uncorrected word substitutions Although every attempt has been made by the provider to proofread this document, occasional misspellings and typographical errors may still be present Due to the previous pandemic, and the use of personal protective equipment (PPE) This may decrease voice recognition accuracy Inadvertent manufacturing plant controller errors may occur 09/22/2024 Prediabetes (ICD-10 - R73.03) #Weight Management 09/22/2024 Transition to Wegovy A1c Indicating euglycemia at 5.4 Patient has been found to be obese with a BMI of (28). Patient has overweight class per BMI standards Total time spent today was 30 minutes of which greater than 50% was spent on coordinating and counseling We are a board certified obesity and weight management practice Patient has trialed behavioral modification, dietary restrictions and exercise for a minimum of 6 months The most recent [place] [employer]ocrinologists and [place] [employer] guidelines recommend patients who have overweight BMI or obesity BMI, who also have metabolic syndrome, prediabetes, or at risk of developing type 2 diabetes should aim for a weight loss goal of at least 10% of the baseline body weight Patient counseled regarding effects of GLP/GIP-1 agonists, and other FDA approved wgt loss meds with regards to a multifactorial approach of weight loss as mentioned above and not solely appetite suppression. Of note, some information is being carried forward from prior records for informational purposes only and is being cited so that efficiency, safety and quality of the patient's care is not compromised This note was prepared using voice recognition software and direct typing Please excuse inadvertent manufacturing plant controller or typing errors, or uncorrected word substitutions Although every attempt has been made by the provider to proofread this document, occasional misspellings and typographical errors may still be present Due to the previous pandemic, and the use of personal protective equipment (PPE) This may decrease voice recognition accuracy Inadvertent manufacturing plant controller errors may occur 03/02/2025 QUYEN on CPAP (ICD-10 - G47.33) #Weight Management 03/02/2025 History of prediabetes metabolic syndrome and QUYEN on CPAP Lets update labs Sent prescription to [facility] direct Patient has been found to be obese [...] software and direct typing Please excuse inadvertent manufacturing plant controller or typing errors, or uncorrected word substitutions Although every attempt has been made by the provider to proofread this document, occasional misspellings and typographical errors may still be present Due to the previous pandemic, and the use of personal protective equipment (PPE) This may decrease voice recognition accuracy Inadvertent manufacturing plant controller errors may occur 01/21/2025 QUYEN on CPAP (ICD-10 - G47.33) #Weight Management 01/21/2025 History of prediabetes metabolic syndrome and QUYEN on CPAP Zepbound 5 mg. Getting labs from other specialties. Patient has been found to be obese [...] software and direct typing Please excuse inadvertent manufacturing plant controller or typing errors, or uncorrected word substitutions Although every attempt has been made by the provider to proofread this document, occasional misspellings and typographical errors may still be present Due to the previous pandemic, and the use of personal protective equipment (PPE) This may decrease voice recognition accuracy Inadvertent manufacturing plant controller errors may occur 12/07/2024 QUYEN on CPAP (ICD-10 - G47.33) #Weight Management 12/07/2024 History of prediabetes metabolic syndrome and QUYEN [...] board certified obesity and weight management practice Patient has trialed behavioral modification, dietary restrictions and exercise for a minimum of 6 months The most recent [place] [employer]ocrinologists and [place] [employer] guidelines recommend patients who have overweight BMI or obesity BMI, who also have metabolic syndrome, prediabetes, or at risk of developing type 2 diabetes should aim for a weight loss goal of at least 10% of the baseline body weight Patient counseled regarding effects of GLP/GIP-1 agonists, and other FDA approved wgt loss meds with regards to a multifactorial approach of weight loss as mentioned above and not solely appetite suppression. Of note, some information is being carried forward from prior records for informational purposes only and is being cited so that efficiency, safety and quality of the patient's care is not compromised This note was prepared using voice recognition software and direct typing Please excuse inadvertent manufacturing plant controller or typing errors, or uncorrected word substitutions Although every attempt has been made by the provider to proofread this document, occasional misspellings and typographical errors may still be present Due to the previous pandemic, and the use of personal protective equipment (PPE) This may decrease voice recognition accuracy Inadvertent manufacturing plant controller errors may occur 03/02/2025 Prediabetes (ICD-10 - R73.03) #Weight Management 03/02/2025 History of prediabetes metabolic syndrome and QUYEN on CPAP Lets update labs Sent prescription to [facility] direct Patient has been found to be obese [...] software and direct typing Please excuse inadvertent manufacturing plant controller or typing errors, or uncorrected word substitutions Although every attempt has been made by the provider to proofread this document, occasional misspellings and typographical errors may still be present Due to the previous pandemic, and the use of personal protective equipment (PPE) This may decrease voice recognition accuracy Inadvertent manufacturing plant controller errors may occur 03/02/2025 Vitamin D deficiency (ICD-10 - E55.9) #Weight Management 03/02/2025 History of prediabetes metabolic syndrome and QUYEN on CPAP Lets update labs Sent prescription to [facility] direct Patient has been found to be obese [...] software and direct typing Please excuse inadvertent manufacturing plant controller or typing errors, or uncorrected word substitutions Although every attempt has been made by the provider to proofread this document, occasional misspellings and typographical errors may still be present Due to the previous pandemic, and the use of personal protective equipment (PPE) This may decrease voice recognition accuracy Inadvertent manufacturing plant controller errors may occur 11/10/2024 #Weight Management 11/10/2024 Transition to Wegovy A1c Indicating euglycemia at 5.4 Patient has been found to be obese with a BMI of (28). Patient has overweight class per BMI standards Total time spent today was 30 minutes of which greater than 50% was spent on coordinating and counseling We are a board certified obesity and weight management practice Patient has trialed behavioral modification, dietary restrictions and exercise for a minimum of 6 months The most recent [place] [employer] of clinical endocrinologists and [place] [employer] guidelines recommend patients who have overweight BMI or obesity BMI, who also have metabolic syndrome, prediabetes, or at risk of developing type 2 diabetes should aim for a weight loss goal of at least 10% of the baseline body weight Patient counseled regarding effects of GLP/GIP-1 agonists, and other FDA approved wgt loss meds with regards to a multifactorial approach of weight loss as mentioned above and not solely appetite suppression. Of note, some information is being carried forward from prior records for informational purposes only and is being cited so that efficiency, safety and quality of the patient's care is not compromised This note was prepared using voice recognition software and direct typing Please excuse inadvertent manufacturing plant controller or typing errors, or uncorrected word substitutions Although every attempt has been made by the provider to proofread this document, occasional misspellings and typographical errors may still be present Due to the previous pandemic, and the use of personal protective equipment (PPE) This may decrease voice recognition accuracy Inadvertent manufacturing plant controller errors may occur 01/21/2025 #Weight Management 01/21/2025 History of prediabetes metabolic [...] software and direct typing Please excuse inadvertent manufacturing plant controller or typing errors, or uncorrected word substitutions Although every attempt has been made by the provider to proofread this document, occasional misspellings and typographical errors may still be present Due to the previous pandemic, and the use of personal protective equipment (PPE) This may decrease voice recognition accuracy Inadvertent manufacturing plant controller errors may occur Plan Of Treatment Pending Test Test Name Order Date 25OH VITAMIN D 04/02/2024 25OH VITAMIN D 03/02/2025 CBC (COMPLETE BLOOD COUNT) WITH DIFF COMPREHENSIVE METABOLIC PANEL 04/02/2024 COMPREHENSIVE METABOLIC PANEL 03/02/2025 HEMOGLOBIN A1C 04/02/2024 HEMOGLOBIN A1C 03/02/2025 LIPID PANEL 04/02/2024 LIPID PANEL 03/02/2025 TSH 03/02/2025 TSH WITH REFLEX TO FT4 04/02/2024 URINALYSIS W/REFLEX CULTURE 04/02/2024 CBC with Differential 03/02/2025 Next Appt Details Provider Name:VANCE MCCALL, 04/13/2025 10:45:00 AM, [address], [place], [address], Insurance Providers Payer Name Payer Address Payer Phone Subscriber Number Group Number Insured Name Patient Relationship to Insured Coverage Start Date Coverage End Date [facility] [address] [place] [address] [id number] Consuelo Mazariegos Self - patient is the insured 3 Medical (General) History Medical History History ICD Code hyperlipidemia asthma Arthritis headache kidney stones anxiety Surgical History Surgery Date(Month/Year) carpal tunnel release Abdominal plasty Sacral Surgery
--- OUTSIDE RECORDS SUMMARY | 2025-04-09 12:08 | XMS_ITS | Continuity of Care Document ---
Author Organization [facility] [address] [place] [address] Phone [phone] Care Team Providers Care Cold Header Name Role Phone Stephanie Acevedo MD Care Team Informa tion Photography Intern [phone] Problems Active Problems Provider Date Prediabetes Jaclyn Thomas M.D. Ons et: 10/06/2022 Kidney stone Jaclyn Thomas M.D. Ons et: 10/06/2022 Anxiety Jaclyn Thomas M.D. Ons et: 10/06/2022 Asthma Jaclyn Thomas M.D. Ons et: 10/06/2022 Irritable bowel syndrome Jaclyn Thomas M.D. Onset: 10/06/2022 Cyst of ovary Jaclyn Thomas M.D. Ons et: 10/06/2022 At high risk for breast cancer Jaclyn banda M.D. Onset: 10/06/2022 Non-toxic multinodular goiter Jaclyn humphries M.D. Onset: 10/06/2022 Lyme disease Jaclyn Thomas M.D. Ons et: 10/06/2022 Erosive esophagitis Jaclyn Thomas M.D. Onset: 10/06/2022 Hemangioma of liver Jaclyn Thomas M.D. Onset: 10/06/2022 Fibromyalgia Jaclyn Thomas M.D. Ons et: 10/06/2022 Dyslipidemia Jaclyn Thomas M.D. Ons et: 10/06/2022 Pneumonia caused by SARS-CoV-2 Jaclyn banda M.D. Onset: 10/06/2022 Degeneration of lumbar inter vertebral disc Jaclyn Thomas M.D. Onset: 10/06/2022 Osteoarthritis Jaclyn Thomas M.D. Ons et: 10/06/2022 Tachycardia-bradycardia Jaclyn Thomas M.D. Onset: 10/06/2022 Migraine Jaclyn Thomas M.D. Ons et: 10/06/2022 Social History Type Date Description Comments Sex Unknown Occupation Nurse insurance Work Status Full-Time Employment ETOH Use Rarely consumes alcohol Tobacco Use Start: Unknown End: Unknown Patient is a former smoker quit early 30s-3/4 ppd x 7 yrs Allergies and adverse reactions Active Allergies Criticality Reaction Severity Comments Date Sulfamethoxazole Unable to assess criticality 10/06/2022 Codeine Unable to assess criticality 10/06/2022 Medications Active Medications SIG Qnty Indications Ordering Provider Date Atorvastatin [id number] Tablets Take One Tablet By Mouth Every Day AT Bedtime Unknown Albuterol Sulfate BSS055(90Base) mcg/Act Aerosol Inhale 2 Puffs Every 6 Hours Unknown [id number] Capsules DR 1 by mouth every day Jaclyn Thomas M.D. Wegovy0.25mg/0.5ML Solution Auto-Inject Inject 0.25 MG Under The Skin Once Weekly Madiha Vinson NP Vital Signs Date Vital Result Comment 11/08/2024 3:37pm BP Systolic 116 mmHg BP Diastolic 80 mmHg Heart Rate 92 /min Height 65 inches 5'5 Weight 182.25 lb BMI (Body Mass Index) 30.3 kg/m2 Results Test Acquired Date Facility Test Result H/L Range N ote TSH RFX On Abnormal To Free T4 11/08/2024 [facility] TSH RFX On Abnormal To Free T4 <pending> TSH With Reflex To FT4 10/06/2022 [facility] TSH With Reflex To FT4 0.93 uIU/mL (0.4-4.2) BUN 10/06/2022 [facility] BUN 16 mg/dL (6-20) Creatinine 10/06/2022 [facility] Creatinine 0.8 mg/dL (0.5-1.0) Estimated GFR Creatinine 99 ML/MIN/1.7 3M2 1 Glucose Fingerstick 10/06/2022 Inhouse Glucose Fingerstick 114 1 Creatinine based est imated glomerular filtration (eGFR) in adults is calculated using the [employer] recommended 2020 CKD-EPI equation. Estimates GFR from serum creatinine, age and sex. Procedures Date Code Description Status 10/06/2022 02677 Collection Of Venous Blood B y Venipuncture Completed Medical Devices Description No Information Available Encounters Type Date Location Provider Dx Diagnosis Office Visit 11/08/2024 3:30p Main Office Jaclyn Thomas M.D. E04.2 Nontoxic multinodular goiter Assessments Date Code Description Provider 11/08/2024 E04.2 Nontoxic multinodular goiter Jaclyn Thomas M.D. Plan of Treatment Future Appointment(s):* 11/18/2025 3:15 pm - Jaclyn Thomas M.D. at Main Office 10/06/2022 - Jaclyn Thomas M.D.* R73.03 Prediabetes * E04.2 Nontoxic multinodular goiter * Z01.812 Encounter for preprocedural laboratory examination Functional Status Description No Information Available Mental Status Description No Information Available Referrals Description No Information Available
--- OUTSIDE RECORDS SUMMARY | 2025-04-09 12:08 | XMS_ITS | Encounter Summary ---
Author Organization [facility] Address [address] [place] [id number] Care Team Providers Care Chart Collector Name Role Phone Stephanie Shah MD Primary Care Prov ider Encounter Details Date Type Department Care Team ([facility] st Contact Info) Description 12/02/2022 Scanned Document INTERFACE DEFAULT [address] [place] [id number] System, Provider Not In Social History [...] on file documented as of this encounter Procedures Procedure Name Priority Date/Time Associated Diagnosis Comments MRI RESULT SCAN 12/02/2022 12:00 AM EST documented in this encounter Results * MRI Result Scan (12/02/2022 12:00 AM EST) us Provider Not In System IMG SCAN REPORTS Final Re sult documented in this encounter Visit Diagnoses Not on filedocumented in this encounter Care Teams Chart Collector Relationship Specialty Start Date End Date Stephanie Shah MD PCP - General Internal Medicine 07/02/24 documented as of this encounter
== END 2025-04-09 12:42 | disposition home or self-care (01) ==
LOC: HO.RHES 10:53
PROVIDERS: Visit Provider Internal Medicine Rheumatology
DX: R76.8 Other specified abnormal immunological findings in serum (principal); M25.50 Pain in unspecified joint
CPT/HCPCS: 99204

== ENCOUNTER → 2025-04-09 10:52 | Outpatient (BNVA) | payer SELFPAY | PROVIDERS: Visit Provider Internal Medicine Rheumatology | DX: R76.8 Other specified abnormal immunological findings in serum (principal); M25.50 Pain in unspecified joint | CPT/HCPCS: 99202 ==